=== PATIENT | female | born 1940 | race Hispanic/Latino ===

== ENCOUNTER 2018-09-01 15:11 | Emergency (ER) | payer OTHER, BC ==
[2018-09-01] MEDS ORDERED: KETOROLAC 30 MG/ML INJ ONE (16:04)
[2018-09-01] MEDS ORDERED: HYDROCODONE/APAP 7.5/325 MG TAB ONE (16:15)
--- NOTE | 2018-09-01 16:34 | RAD REPORT ---
EXAM DESCRIPTION: USExtmoi Venous Uni Ltd3 4:08 pm CLINICAL HISTORY: left leg pain. COMPARISON: None. FINDINGS: Left common femoral, superficial femoral, popliteal and posterior tibial veins are compre ssible and demonstrate augmentation. Doppler demonstrates good flow. IMPRESSION: No evidence of deep venous thrombosis involving the left lower extremity.
--- NOTE | 2018-09-01 16:56 | EDPHYS ---
Physician Documentation [facility] Name: Vivian Amaya Age: 78 yrs Sex: Female : 1940 Arrival Date: 09/01/2018 Time: 15:17 Bed 10 Private MD: Jean-Claude Thakkar HPI: 09/01 15:45 This 78 yrs old Female presents to ER via Wheelchair with complaints of Knee cp Pain. 15:45 The patient presents with pain, that is chronic. cp 15:45 The complaints affect the left leg. Onset: The symptoms/episode began/occurred 2 cp year(s) ago, and became worse today. 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 Patient cp reports she has received injections in the past with some relief. 15:48 Patient reports she is visiting family in [place] and lives in [place]. Arrived cp here by car. Historical: - Allergies: 15:39 Lisinopril; sv - PMHx: 15:39 Hypertension; sv - PSHx: 15:39 None; back; sv - Immunization history:: Adult Immunizations up to date. - Social history:: Smoking status: Patient/guardian denies using tobacco. - Ebola Screening: : Patient negative for fever greater than or equal to 101.5 degrees Fahrenheit, and additional compatible Ebola Virus Disease symptoms Patient denies exposure to infectious person Patient denies travel to an Ebola-affected area in the 21 days before illness onset No symptoms or risks identified at this time. ROS: 16:00 Constitutional: Negative for body aches, chills, fever, poor PO intake. cp 16:00 Eyes: Negative for injury, pain, redness, and discharge. cp 16:00 Cardiovascular: Negative for chest pain, edema, palpitations. cp 16:00 Respiratory: Negative for cough, shortness of breath, wheezing. 16:00 Back: Negative for pain at rest, pain with movement. 16:00 MS/extremity: Positive for pain, tenderness, of the left leg, Negative for injury or acute deformity, decreased range of motion. 16:00 Skin: Negative for cellulitis, rash. 16:00 Neuro: Negative for altered mental status, headache, weakness. cp 16:00 All other systems are negative. Exam: 16:05 Constitutional: The patient appears in no acute distress, alert, awake, cp non-diaphoretic, non-toxic, well developed, well nourished, obese, uncomfortable. 16:05 Head/Face: Normocephalic, atraumatic. cp 16:05 Eyes: Periorbital structures: appear normal, Conjunctiva: normal, no exudate, no injection, Sclera: no appreciated abnormality, Lids and lashes: appear normal, bilaterally. 16:05 ENT: External ear(s): are unremarkable, Nose: is normal, Mouth: Lips: moist, Oral mucosa: moist, Posterior pharynx: Airway: no evidence of obstruction, patent. 16:05 Chest/axilla: Inspection: normal. 16:05 Cardiovascular: Rate: normal, Rhythm: regular. 16:05 Respiratory: the patient does not display signs of respiratory distress, Respirations: normal, no use of accessory muscles, no retractions, no splinting, no tachypnea, labored breathing, is not present, Breath sounds: are clear throughout, no decreased breath sounds, no stridor, no wheezing. 16:05 Abdomen/GI: Exam negative for discomfort, distension, guarding, Inspection: obese 16:05 Musculoskeletal/extremity: Extremities: grossly normal except: noted in the left leg: pain, tenderness, DVT Exam: no erythema, no increased warmth, pain, that is moderate, of the left leg, tenderness, that is moderate, of the left leg. 16:05 Skin: cellulitis, is not appreciated, no rash present. Vital Signs: 15:39 BP 158 / 72; Pulse 86; Resp 20; Temp 97; Pulse Ox 98% ; Weight 98.43 kg; Height 5 ft. 2 sv in. (157.48 cm); 16:19 Pain 8/10; ls4 15:39 Body Mass Index 39.69 (98.43 kg, 157.48 cm) sv MDM: 15:42 Patient medically screened. luana 16:54 Data reviewed: vital signs, nurses notes, radiologic studies, ultrasound, and as a cp result, I will discharge patient. 09/01 15:50 Order name: US Extremity Venous Unilateral Ltd; Complete Time: 16:50 cp Administered Medications: 15:58 Drug: TORadol 60 mg Route: IM; Site: right deltoid; ls4 16:19 Follow up: Pain 8/10 Adult; Response: No adverse reaction; Pain is decreased ls4 16:19 Drug: Hydrocodone-Acetaminophen (7.5 mg-325 mg) 1 tabs Route: PO; ls4 16:45 Follow up: Response: No adverse reaction; Marked relief of symptoms ls4 Disposition: 09/02 05:54 Co-signature as Attending Physician, Jean-Claude Pino MD I agree with the assessment and [facility] plan of care. Disposition: 09/01/18 16:55 Discharged to Home. Impression: Pain in left leg. - Condition is Stable. - Discharge Instructions: Joint Pain, Musculoskeletal Pain. - Prescriptions for Ultracet 37.5- 325 mg Oral Tablet - take 1 tablet by ORAL route every 6 hours - for up to 5 days; do not exceed 8 tablets per day.; 20 tablet. - Medication Reconciliation Form, Thank You Letter, Antibiotic Education, Prescription Opioid Use form. - Follow up: Private Physician; When: once returned home; Reason: Recheck today's complaints. - Problem is new. - Symptoms have improved. Signatures: Dispatcher [employer] Krystal Schilling RN RN Jean-Claude Newberry MD MD cha Page, Corey, PA PA cp Stewart, Lisa RN RN ls4 Corrections: (The following items were deleted from the chart) 09/01 17:09 16:55 09/01/2018 16:55 Discharged to Home. Impression: Pain in left leg. Condition is ls4 Stable. Forms are Medication Reconciliation Form, Thank You Letter, Antibiotic Education, Prescription Opioid Use. Follow up: Private Physician; When: once returned home; Reason: Recheck today's complaints. Problem is new. Symptoms have improved. cp
--- NOTE | 2018-09-01 16:56 | ER ---
Nurse's Notes [facility] Name: Vivian Amaya Age: 78 yrs Sex: Female : 1940 Arrival Date: 09/01/2018 Time: 15:17 Bed 10 Private MD: Diagnosis: Pain in left leg Presentation: 09/01 15:37 Presenting complaint: Patient states: LLE pain x 2 years, has seen PCP and given sv prescriptions for it but pain "is too much today, they tell me it's arthritis but I don't think so.". Transition of care: patient was not received from another setting of care. Onset of symptoms was 2017. Care prior to arrival: None. 15:37 Method Of Arrival: Wheelchair sv 15:37 Acuity: ORA 4 sv 15:44 Risk Assessment: Do you want to hurt yourself or someone else? Patient reports no ls4 desire to harm self or others. Initial Sepsis Screen: Does the patient meet any 2 criteria? No. Patient's initial sepsis screen is negative. Does the patient have a suspected source of infection? No. Patient's initial sepsis screen is negative. Triage Assessment: 15:44 General: Appears in no apparent distress. Behavior is calm, cooperative. ls4 Cardiovascular: Denies chest pain, diaphoresis, fatigue, lightheadedness, nausea, palpitations, shortness of breath, syncope, vomiting. Respiratory: Airway is patent Respiratory effort is even, unlabored, Respiratory pattern is regular, Denies shortness of breath. Musculoskeletal: Circulation, motion, and sensation intact. Capillary refill < 3 seconds, Range of motion: intact in all extremities. Historical: - Allergies: 15:39 Lisinopril; sv - PMHx: 15:39 Hypertension; sv - PSHx: 15:39 None; back; sv - Immunization history:: Adult Immunizations up to date. - Social history:: Smoking status: Patient/guardian denies using tobacco. - Ebola Screening: : Patient negative for fever greater than or equal to 101.5 degrees Fahrenheit, and additional compatible Ebola Virus Disease symptoms Patient denies exposure to infectious person Patient denies travel to an Ebola-affected area in the 21 days before illness onset No symptoms or risks identified at this time. Screenin:43 Abuse screen: Denies threats or abuse. Denies injuries from another. Nutritional ls4 screening: No deficits noted. Tuberculosis screening: No symptoms or risk factors identified. Fall Risk None identified. Assessment: 15:30 General: Appears uncomfortable. Pain: Complains of pain in left knee Pain currently is ls4 10 out of 10 on a pain scale. Quality of pain is described as sharp, shooting, Pain began years ago. 15:30 Neuro: No deficits noted. Cardiovascular: No deficits noted. Respiratory: No deficits ls4 noted. GI: No deficits noted. : No deficits noted. Derm: No deficits noted. Musculoskeletal: Circulation, motion, and sensation intact. Capillary refill < 3 seconds, Range of motion: limited in left knee and right knee Reports pain in right knee. 16:45 Reassessment: Patient appears in no apparent distress at this time. Patient and/or ls4 family updated on plan of care and expected duration. Pain level reassessed. Patient is alert, oriented x 3, equal unlabored respirations, skin warm/dry/pink. General: Appears in no apparent distress. Vital Signs: 15:39 BP 158 / 72; Pulse 86; Resp 20; Temp 97; Pulse Ox 98% ; Weight 98.43 kg; Height 5 ft. 2 sv in. (157.48 cm); 16:19 Pain 8/10; ls4 15:39 Body Mass Index 39.69 (98.43 kg, 157.48 cm) sv ED Course: 15:17 Patient arrived in ED. mr 15:38 Triage completed. sv 15:40 Arm band placed on. sv 15:41 Jean-Claude Mederos PA is PHCP. cp 15:41 Elvia Herrera MD is Attending Physician. cp 15:41 Attending Physician role handed off by Elvia Herrera MD luana 15:41 Jean-Claude Pino MD is Attending Physician. luana 15:43 Ary Lion, SHA is Primary Nurse. ls4 15:43 Patient has correct armband on for positive identification. Bed in low position. Call ls4 light in reach. Side rails up X 1. 15:43 No provider procedures requiring assistance completed. ls4 16:09 US Extremity Venous Unilateral Ltd In Process Unspecified. EDMS 16:11 Ultrasound completed. hr 17:09 Patient did not have IV access during this emergency room visit. ls4 Administered Medications: 15:58 Drug: TORadol 60 mg Route: IM; Site: right deltoid; ls4 16:19 Follow up: Pain 8/10 Adult; Response: No adverse reaction; Pain is decreased ls4 16:19 Drug: Hydrocodone-Acetaminophen (7.5 mg-325 mg) 1 tabs Route: PO; ls4 16:45 Follow up: Response: No adverse reaction; Marked relief of symptoms ls4 Outcome: 16:55 Discharge ordered by . cp 16:58 Discharged to home ambulatory, with family. ls4 16:58 Condition: stable 16:58 Discharge instructions given to patient, family, Instructed on discharge instructions, follow up and referral plans. medication usage, Demonstrated understanding of instructions, follow-up care, medications, Prescriptions given X 17:09 Patient left the ED. ls4 Signatures: Dispatcher [employer] Krystal Schilling, Jean-Claude Garcia RN, MD MD cha Rivera Yudelka mr Matt, Jean-Claude Almaguer, PA Ary Goff cp, SHA RN ls4
== END 2018-09-01 17:09 | disposition home or self-care (01) ==
LOC: ER 15:11
DX: M25.562 Pain in left knee (principal); I10 Essential (primary) hypertension
CPT/HCPCS: 93971; 96372; 99283